=== PATIENT | female | born 1975 | race Hispanic/Latino ===

== ENCOUNTER 2018-10-13 09:37 | Emergency (ER) | payer SELFPAY ==
[~2018-10-13] VITALS: Ht 139.7 cm; Wt 50.8 kg
[2018-10-13 10:45] LABS: HEMATOCRIT 38.3 % (37.0-47.0); HEMOGLOBIN 13.2 g/dl (12.0-16.0); IMMATURE GRANULOCYTES 0.3 % (0.0-5.0); MEAN CELL VOLUME 89.3 fL CALC (80.0-100.0); MEAN CORPUSCULAR HGB 30.8 pG CALC (26.0-32.0); MEAN CORPUSCULAR HGB CONC 34.5 g/L CALC (32.0-36.0); NEUT# 4.06 thou/uL (2.00-7.15); RED BLOOD COUNT 4.29 mill/uL (4.20-5.60); RED CELL DISTRI WIDTH 12.8 % (11.5-15.5)
[2018-10-13 11:23] LABS: BILIRUBIN, TOTAL 0.8 mg/dL (0.0-1.4); BUN 8 mg/dL (7-17); BUN/CREATININE RATIO 19 (12-20 (CALC)); CARBON DIOXIDE 24 mmol/l (22-30); CHLORIDE 104 mmol/l (95-108); CREATININE 0.4 mg/dL (0.5-1.0); GFR > 60 ML/MIN (>=60 (CALC)); GFR FOR AFR.AMER. > 60 ML/MIN (>=60 (CALC)); SGOT/AST 21 u/l (14-36)
[2018-10-13 11:24] LABS: ANION GAP 15 (6-22 (CALC)); SODIUM 139 mmol/l (137-146); TOTAL PROTEIN 7.9 g/dL (6.3-8.2)
[2018-10-13 11:25] LABS: ALBUMIN 4.5 g/dL (3.2-5.0); ALKALINE PHOSPHATASE 98 u/l (38-126)
[2018-10-13] MEDS ORDERED: TORADOL PO (12:38)
[2018-10-13] MEDS ORDERED: AMOXICILLIN500 MG PO (12:38)
[2018-10-13 12:50] VITALS: BP 139/82
== END 2018-10-13 12:50 | disposition home or self-care (01) | DRG 125 ==
LOC: ED 09:37
PROVIDERS: Emergency Medicine
DX: H57.11 Ocular pain, right eye (principal); J02.9 Acute pharyngitis, unspecified